=== PATIENT | female | born 1990 | race African-American/Black ===

== ENCOUNTER 2025-04-20 09:42 | Outpatient (AMB) | payer OTHER, SELFPAY ==
--- OUTSIDE RECORDS SUMMARY | 2024-12-23 04:45 | XMS_ITS ---
Author Organization [facility] [address] Address [address] [place] [address] Care Team Providers Care Data Administrator Name Role Phone Roxanna Levy Primary Care Provider MICH Sheth [phone] Encounters Encounter Location Date Provider Diagnosis [facility] [address] [facility] [address] [place] [address] 12/23/2024 MICH HICKEY Plan Of Treatment Next Appt Details Provider Name:MICH Krishnamurthy, 04/23/2025 09:00:00 AM, [address], [place], [address], Progress Notes * SOTO MOSHERDOB:0 1990 (34 yo F)Acc No.[id number]:12/23/2024 Patient: SOTO GAINES Provider: Esequiel HICKEY PA-C :1990 A ge:34 Y S ex:Female Date:12/23/2024 Address:[address] [place], [place] Pcp:Roxanna Levy * Electronic signature of MYRON HICKEY PA-C on 04/20/2025 at 11:02 AM EST Sign off status: Pending * Provider: Esequiel HICKEY PA-C Date: 0 12/23/2024 Generated for Zenaidai ng/Fakarinag/eTransmitting on: 1 06/20/2024 11:02 AM EST
--- OUTSIDE RECORDS SUMMARY | 2025-02-26 04:00 | XMS_ITS ---
Author Organization [facility] [address] Address [address] [place] [address] Care Team Providers Care Cannon Pinion Adjuster Name Role Phone Roxanna Levy Primary Care Provider MICH Sheth [phone] Encounters Encounter Location Date Provider Diagnosis [facility] [address] [facility] [address] [place] [address] 02/26/2025 MICH HICKEY Plan Of Treatment Next Appt Details Provider Name:MICH Krishnamutrhy, 04/23/2025 09:00:00 AM, [address], [place], [address], Progress Notes * SOTO MOSHERDOB:0 1990 (34 yo F)Acc No.[id number]:02/26/2025 Patient: SOTO GAINES Provider: Esequiel HICKEY PA-C :1990 A ge:34 Y S ex:Female Date:02/26/2025 Address:[address] [place], [place] Pcp:Roxanna Levy * Electronic signature of MYRON HICKEY PA-C on 04/20/2025 at 11:04 AM EST Sign off status: Pending * Provider: Esequiel HICKEY PA-C Date: 0 02/26/2025 Generated for Zenaidai ng/Fakarinag/eTransmitting on: 1 06/20/2024 11:04 AM EST
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
[2025-04-20 09:45] VITALS: BP 112/80; PULSE 74; RESP 16; TEMP 36.2; O2SAT 95; BMI 53.3
== END 2025-04-20 10:31 | disposition home or self-care (01) ==
LOC: HO.HMCHD 09:42
PROVIDERS: PCP Internal Medicine; Visit Provider Internal Medicine
DX: G43.909 Migraine, unspecified, not intractable, without status migrainosus (principal); K21.9 Gastro-esophageal reflux disease without esophagitis; M54.50 Low back pain, unspecified; G89.29 Other chronic pain; F33.9 Major depressive disorder, recurrent, unspecified; F41.9 Anxiety disorder, unspecified